=== PATIENT | female | born 1975 | race African-American/Black ===

== ENCOUNTER 2022-12-09 14:04 | Day surgery (SDC) | payer OTHER ==
[2022-12-09] MEDS ORDERED: IRON SUCROSE COMPLEX 200 MG in SODIUM CHLORIDE 100 ML IVPB ONE (14:30)
[2022-12-09 16:42] VITALS: BP 120/70; PULSE 82; RESP 18; TEMP 98.5
== END 2022-12-09 15:35 | disposition home or self-care (01) ==
LOC: FINFUSION 14:04 → FM/S 14:07 → FINFUSION 15:35
PROVIDERS: ATTEND Family Medicine
PROC: 3E033GC Introduction of Other Therapeutic Substance into Peripheral Vein, Percutaneous Approach (ICD-10-PCS; principal; 2022-12-09)
DX: D50.9 Iron deficiency anemia, unspecified (principal)
CPT/HCPCS: 96365

== ENCOUNTER 2022-12-18 11:03 | Day surgery (SDC) | payer OTHER ==
[2022-12-18] MEDS ORDERED: HYDROCORTISONE SOD SUCCINATE 100 MG/2 ML VIAL IVPUSH PRN (11:23)
[2022-12-18] MEDS ORDERED: diphenhydrAMINE HCL 25 MG CAPSULE (FP) PO PRN (11:23)
[2022-12-18] MEDS ORDERED: IRON SUCROSE INJECTION 200 MG in SODIUM CHLORIDE 100 ML IVPB ONE (11:45)
[2022-12-18 11:52] VITALS: RESP 18; TEMP 98.9
[2022-12-18 13:00] VITALS: BP 135/70; PULSE 72
== END 2022-12-18 12:20 | disposition home or self-care (01) ==
LOC: FINFUSION 11:03 → FM/S 11:09 → FINFUSION 12:20
PROVIDERS: ATTEND Family Medicine
PROC: 3E033GC Introduction of Other Therapeutic Substance into Peripheral Vein, Percutaneous Approach (ICD-10-PCS; principal; 2022-12-18)
DX: D50.9 Iron deficiency anemia, unspecified (principal)
CPT/HCPCS: 96365; J1756

== ENCOUNTER 2022-12-24 11:29 | Day surgery (SDC) | payer OTHER ==
[2022-12-24] MEDS ORDERED: IRON SUCROSE COMPLEX 200 MG in SODIUM CHLORIDE 100 ML IVPB SCH (12:15)
[2022-12-24] MEDS ORDERED: IRON SUCROSE INJECTION 200 MG in SODIUM CHLORIDE 100 ML IVPB ONE (12:15)
[2022-12-24 14:02] VITALS: BP 114/60; PULSE 84; RESP 18; TEMP 98.1
== END 2022-12-24 13:10 | disposition home or self-care (01) ==
LOC: FINFUSION 11:29 → FM/S 11:55 → FINFUSION 13:10
PROVIDERS: ATTEND Family Medicine
PROC: 3E033GC Introduction of Other Therapeutic Substance into Peripheral Vein, Percutaneous Approach (ICD-10-PCS; principal; 2022-12-24)
DX: D50.9 Iron deficiency anemia, unspecified (principal)
CPT/HCPCS: 96365

== ENCOUNTER 2022-12-31 11:12 | Day surgery (SDC) | payer OTHER ==
[2022-12-31] MEDS ORDERED: IRON SUCROSE COMPLEX 200 MG in SODIUM CHLORIDE 100 ML IVPB SCH (11:45)
[2022-12-31 15:39] VITALS: BP 128/75; PULSE 72; RESP 18; TEMP 98.4
== END 2022-12-31 12:45 | disposition home or self-care (01) ==
LOC: FINFUSION 11:12 → FM/S 11:12 → FINFUSION 12:45
PROVIDERS: ATTEND Family Medicine
PROC: 3E033GC Introduction of Other Therapeutic Substance into Peripheral Vein, Percutaneous Approach (ICD-10-PCS; principal; 2022-12-31)
DX: D50.9 Iron deficiency anemia, unspecified (principal)
CPT/HCPCS: 96365

== ENCOUNTER 2023-01-07 11:03 | Day surgery (SDC) | payer OTHER ==
[2023-01-07] MEDS ORDERED: IRON SUCROSE COMPLEX 200 MG in SODIUM CHLORIDE 100 ML IVPB SCH (11:45)
[2023-01-07 12:51] VITALS: BP 114/53; PULSE 80; RESP 16; TEMP 98.9
== END 2023-01-07 13:00 | disposition home or self-care (01) ==
LOC: FINFUSION 11:03 → FM/S 11:03 → FINFUSION 13:00
PROVIDERS: ATTEND Family Medicine
PROC: 3E033GC Introduction of Other Therapeutic Substance into Peripheral Vein, Percutaneous Approach (ICD-10-PCS; principal; 2023-01-07)
DX: D50.9 Iron deficiency anemia, unspecified (principal)
CPT/HCPCS: 96365